=== PATIENT | male | born 1965 | race Caucasian/White ===

== ENCOUNTER 2016-08-10 16:20 | Outpatient (CLI) ==
[2014-02-20 20:36] VITALS: BMI 26.6
[2016-08-10 16:31] LABS: FLU INTERNAL QC INTERNAL QC VALID; RAPID FLU A NEGATIVE (NEGATIVE); RAPID FLU B NEGATIVE (NEGATIVE)
[2016-08-10 16:32] LABS: BASOPHILS # (AUTO) 0.1 K/uL (0-0.2); BASOPHILS % (AUTO) 0.6 % (0.0-3.0); EOSINOPHILS # (AUTO) 0.1 K/ul (0.0-0.7); EOSINOPHILS % (AUTO) 1.2 % (0.0-7.0); HEMOGLOBIN 14.1 g/dl (14.0-18.0); IMMATURE GRANULOCYTE % (AUTO) 0.2 % (0.0-5.0); LYMPHOCYTES # (AUTO) 2.5 K/uL (0.60-3.4); LYMPHOCYTES % (AUTO) 25.1 (10.0-50.0); MEAN CORPUSCULAR HGB CONC 34.4 (31.8-35.4); MONOCYTES # (AUTO) 1.3 K/uL (0.4-2.0); MONOCYTES % (AUTO) 13.4 (0-10); NEUTROPHILS # (AUTO) 5.9 K/ul (2.0-6.9); NEUTROPHILS % (AUTO) 59.5; PLATELET COUNT 290 10^3/uL (140-440); RED BLOOD COUNT 4.27 10^6/ul (4.70-6.10); WHITE BLOOD COUNT 9.87 K/ul (4.2-10.2)
[2016-08-10 17:05] LABS: ALBUMIN 4.2 g/dL (3.4-5.0); ALBUMIN/GLOBULIN RATIO 1.2; ANION GAP 13.2; BILIRUBIN,TOTAL 0.57 mg/dL (0.00-1.20); BUN/CREATININE RATIO 15.38; CALCIUM 9.6 mg/dL (8.2-10.2); CHOL/HDL RATIO 3.1 (4.5-6.4); CREATININE 1.17 mg/dL (0.60-1.10); POTASSIUM 4.2 mmol/L (3.5-5.1); TOTAL PROTEIN 7.7 g/dL (6.4-8.2)
== END 2016-08-10 16:21 | disposition home or self-care (01) ==
LOC: LAB 16:20
PROVIDERS: ATTEND Nurse Practitioner Family
DX: E78.5 Hyperlipidemia, unspecified (principal); E11.9 Type 2 diabetes mellitus without complications; I10 Essential (primary) hypertension
CPT/HCPCS: 36415; 80053; 80061; 83036; 84439; 84443; 85025; 87651; 87804; 87880

== ENCOUNTER 2017-10-07 08:32 | Inpatient (IN) ==
[2017-10-07 08:32] VITALS: BMI 26.6
--- NOTE | 2017-10-07 09:12 | DI ---
EXAM: PA and lateral views of the chest HISTORY: Cough. COMPARISON: Chest x-ray 12/25/[address] chest 02/20/2014 FINDINGS: The cardiomediastinal silhouette is normal. There is no pneumothorax or pleural effusion. There is no consolidation, nodule or mass. The osseous structures demonstrate old healed right rib fractures and minimal degenerative disease of the spine IMPRESSION: No acute cardiopulmonary process
[2017-10-07] MEDS ORDERED: ZOFRAN 4 MG/2 ML IVP STA (09:29)
[2017-10-07] MEDS ORDERED: ROCEPHIN 1 GM in SODIUM CHLORIDE 50 ML IV STA (09:29)
[2017-10-07] MEDS ORDERED: TYLENOL PO STA ×2 (09:30→20:21)
[2017-10-07] MEDS ORDERED: SODIUM CHLORIDE 1,000 ML IV STA (09:30)
[2017-10-07] MEDS ORDERED: ROCEPHIN ONE (09:49)
--- NOTE | 2017-10-07 11:01 | ED.PDOC ---
General ED Provider: Dr. NORBERTO MEDEL Chief Complaint: Respiratory Complaint Stated Complaint: fever tick bite Time Seen by Physician: 08:39 (removed some ticks off of his body 2 days ago has chills and fever ) Mode of Arrival: Walk-In Information Source: Patient Exam Limitations: No limitations [facility] Nursing and Triage Documentation Reviewed and Agree: Yes Reviewed sepsis parameters & appropriate labs ordered?: Yes System Inflammatory Response Syndrome: Temp 101F or Greater Sepsis Protocol: For patient's 13 years and over: Temp is 96.8 and below OR 101 and greater Pulse >90 BPM Resp >20/minute Acutely Altered Mental Status Are patient's symptoms suggestive of a new infection, such as: -Pneumonia -Skin, Soft Tissue -Endocarditis -UTI -Bone, Joint Infection -Implantable Device -Acute Abdominal Infection -Wound Infection -Meningitis -Blood Stream Catheter Infection -Unknown Miscellaneous Complaint Exam - Febrile Illness/Adult Complaint/Exam Onset/Duration: tick bite fever chills 2 days Symptoms Are: Still present (removed some off his body) Timing: Intermittent Episodes Lasting: Days Highest Temperature Recorded: 101 Initial Severity: Mild Current Severity: Moderate Aggravating: Reports: None Alleviating: Reports: None Associated Signs and Symptoms: Reports: Headache, Cough, Sore throat, Nausea, Arthralgia, Myalgia. Denies: Fluid intake, Short of air, Vomiting, Chills, Diaphoresis, Dysuria, Stiff neck, Rash, Altered mental status Related History: Reports: Recent tick bite Pseudomonas Risk Factors: Reports: None Serious Bacterial Infection Risk Factors: Reports: None Current Antibiotic Use: No Last Time and Dose of Tylenol (acetaminophen): 0 Related Surgical History: None Specific Findings: Absent: Meningeal signs, Diaphoresis, Joint swelling, Erythema, Cellulitis, Lymphadenopathy, Petechiae, CVA tenderness Differential Diagnoses: Ling Mtn. Spotted Fever, Sepsis Review of Systems - Review Of Systems Constitutional: Reports: Fever, Malaise, Weakness, Loss of appetite Eyes: Reports: No symptoms Ears, Nose, Mouth, Throat: Reports: No symptoms Respiratory: Reports: Cough Cardiac: Reports: No symptoms GI: Reports: Nausea : Reports: No symptoms Musculoskeletal: Reports: No symptoms Skin: Reports: No symptoms Neurological: Reports: No symptoms Endocrine: Reports: No symptoms Hematologic/Lymphatic: Reports: No symptoms All Other Systems: Reviewed and Negative Past Medical History - Past Medical History Previously Healthy: Yes Endocrine: Reports: DM 2, Dyslipidemia Cardiovascular: Reports: Hypertension Respiratory: Reports: None Hematological: Reports: None Gastrointestinal: Reports: None Genitourinary: Reports: None Neuro/Psych: Reports: Anxiety, Depression Musculoskeletal: Reports: None Cancer: Reports: None - Surgical History General Surgical History: Reports: None - Family History Family History: Reports: None - Social History Smoking Status: Current every day smoker Hx Substance Use: No Alcohol Screening: Occasionally Physical Exam - Physical Exam Appearance: Well-appearing, No pain distress, Well-nourished Eyes: SONIA, EOMI, Conjunctiva clear ENT: Ears normal, Nose normal, Oropharynx normal Respiratory: Airway patent, Breath sounds clear, Breath sounds equal, Respirations nonlabored Cardiovascular: RRR, Pulses normal, No rub, No murmur GI/: Soft, Nontender, No masses, Bowel sounds normal, No Organomegaly Musculoskeletal: Normal strength, ROM intact, No edema, No calf tenderness Skin: Warm, Dry, Normal color Neurological: Sensation intact, Motor intact, Reflexes intact, Cranial nerves intact, Alert, Oriented Psychiatric: Affect appropriate, Mood appropriate Interpretation - Radiology Interpretation Radiology Interpretation By: Radiologist Radiology Results: No acute changes Physician Notification - Case Discussed Physician Notified: pmd Time of Notification: 11:02 Admit To: Inpatient Critical Care Note - Critical Care Note Total Time (mins): 0 Course - Course Hematology/Chemistry: 10/07/17 09:00 10/07/17 09:00 Orders, Labs, Meds: Lab Review 10/07/17 10/07/17 10/07/17 09:00 09:00 09:00 WBC 21.42 H RBC 4.22 L Hgb 14.1 Hct 41.2 L MCV 97.6 H MCH 33.4 H MCHC 34.2 RDW Coeff of Stephy 12.7 Plt Count 283 Immature Gran % (Auto) 0.4 Neut % (Auto) 87.1 Lymph % (Auto) 7.6 L Bryan % (Auto) 4.4 Eos % (Auto) 0.3 Baso % (Auto) 0.2 Immature Gran # (Auto) 0.1 Neut # (Auto) 18.6 H Lymph # (Auto) 1.6 Bryan # (Auto) 0.9 Eos # (Auto) 0.1 Baso # (Auto) 0.1 Sodium 140 Potassium 4.0 Chloride 104 Carbon Dioxide 26 Anion Gap 14.0 BUN 19 H Creatinine 1.12 H Estimated GFR (MDRD) 69.00 BUN/Creatinine Ratio 16.96 Glucose 113 H Lactic Acid Calcium 9.3 Total Bilirubin 0.3 AST 19 ALT 20 Alkaline Phosphatase 67 Total Protein 7.4 Albumin 4.0 Globulin 3.4 Albumin/Globulin Ratio 1.18 Procalcitonin Urine Color Yellow Urine Clarity Clear Urine pH 6.0 Ur Specific [place] 1.020 Urine Protein Negative Urine Glucose (UA) Negative Urine Ketones Negative Urine Blood Trace-intact Urine Nitrite Negative Urine Bilirubin Negative Urine Urobilinogen 0.2 Ur Leukocyte Esterase Negative Ur Squamous Epith Cells 0-2 Influ A Molecular Assay Influ B Molecular Assay 10/07/17 10/07/17 10/07/17 09:00 09:00 09:40 WBC RBC Hgb Hct MCV MCH MCHC RDW Coeff of Stephy Plt Count Immature Gran % (Auto) Neut % (Auto) Lymph % (Auto) Bryan % (Auto) Eos % (Auto) Baso % (Auto) Immature Gran # (Auto) Neut # (Auto) Lymph # (Auto) Bryan # (Auto) Eos # (Auto) Baso # (Auto) Sodium Potassium Chloride Carbon Dioxide Anion Gap BUN Creatinine Estimated GFR (MDRD) BUN/Creatinine Ratio Glucose Lactic Acid 12.4 Calcium Total Bilirubin AST ALT Alkaline Phosphatase Total Protein Albumin Globulin Albumin/Globulin Ratio Procalcitonin < 0.05 Urine Color Urine Clarity Urine pH Ur Specific [place] Urine Protein Urine Glucose (UA) Urine Ketones Urine Blood Urine Nitrite Urine Bilirubin Urine Urobilinogen Ur Leukocyte Esterase Ur Squamous Epith Cells Influ A Molecular Assay Negative by naat Influ B Molecular Assay Negative by naat Orders Category Date Time Status ED IV/MEDIPORT/POWERPORT .ONCE EMERGENCY 10/07/17 09:29 Active BLOOD CULTURE (ED ONLY) Stat LAB 10/07/17 09:00 Received CBC W/ AUTO DIFF Stat LAB 10/07/17 09:00 Completed COMPREHENSIVE METABOLIC PANEL Stat LAB 10/07/17 09:00 Completed FLU A/B MOLECULAR Stat LAB 10/07/17 09:00 Completed LACTIC ACID Stat LAB 10/07/17 09:40 Completed LYME, WESTERN BLOT, SERUM Stat LAB 10/07/17 09:00 Received MOLECULAR GROUP A STREP Stat LAB 10/07/17 09:00 Completed PROCALCITONIN Stat LAB 10/07/17 09:00 Completed LING MTN SPOTTED FEVER,IgG Stat LAB 10/07/17 09:00 Received LING MTN SPOTTED FEVER,IgM Stat LAB 10/07/17 09:00 Received UA [URINALYSIS C & S IF INDICATED] Stat LAB 10/07/17 09:00 Completed 0.9 % Sodium Chloride [Saline Flush] MEDS 10/07/17 09:29 Active 1 syr IVF PRN PRN Acetaminophen [Tylenol] MEDS 10/07/17 09:30 Discontinued 650 mg PO ONCE STA Ceftriaxone Sodium [Rocephin] MEDS 10/07/17 09:49 Discontinued 1 gm .ROUTE .STK-MED ONE Ceftriaxone Sodium [Rocephin] 1 gm MEDS 10/07/17 09:29 Discontinued 0.9 % Sodium Chloride [Sodium Chloride] 50 ml IV ONCE Ondansetron HCl/Pf [Zofran 4 mg/2 ml] MEDS 10/07/17 09:29 Discontinued 4 mg IVP ONCE STA Sodium Chloride 0.9% [Sodium Chloride] 1,000 ml MEDS 10/07/17 09:30 Discontinued IV BOLUS CHEST, 2 VIEWS PA & LAT Stat RADS 10/07/17 08:39 Completed Medications Generic Name Dose Route Start Last Admin Trade Name Freq PRN Reason Stop Dose Admin Sodium Chloride 1 syr 10/07/17 09:29 10/07/17 10:08 Saline Flush IVF 1 syr PRN PRN Administration To flush IV Discontinued Medications Generic Name Dose Route Start Last Admin Trade Name Freq PRN Reason Stop Dose Admin Acetaminophen 650 mg 10/07/17 09:30 10/07/17 10:06 Tylenol PO 10/07/17 09:31 650 mg ONCE STA Administration Ceftriaxone Sodium 1 gm/ 50 mls @ 75 mls/hr 10/07/17 09:29 10/07/17 10:07 Sodium Chloride IV 10/07/17 10:08 75 mls/hr ONCE STA Administration Sodium Chloride 1,000 mls @ 1,000 mls/hr 10/07/17 09:30 10/07/17 10:08 Sodium Chloride IV 10/07/17 10:29 1,000 mls/hr BOLUS STA Administration Ondansetron HCl 4 mg 10/07/17 09:29 10/07/17 10:05 Zofran 4 Mg/2 Ml IVP 10/07/17 09:30 4 mg ONCE STA Administration Vital Signs: Temp Pulse Resp BP Pulse Ox 10/07/17 08:32 101.2 F H 90 20 160/98 H 93 L Departure - Departure Time of Disposition: 11:02 Disposition: ADMITTED INPATIENT Discharge Problem: Tick bite of axillary region Qualifiers: Encounter type: initial encounter Laterality: right Qualified Code(s): S40.861A - Insect bite (nonvenomous) of right upper arm, initial encounter Instructions: Tick Bite (ED) Condition: Good Pt referred to PMD for follow-up: Yes IPMP verified?: No Allergies/Adverse Reactions: Allergies boceprevir [From Victrelis] Allergy (Severe, Verified 10/07/17 08:36) abnormal labwork ribofurin Allergy (Severe, Uncoded 01/18/14 13:37) abnormal labwork
[2017-10-07] MEDS: DOXY-100 100 MG in SODIUM CHLORIDE 100 ML IV SCH ×2 (12:35→20:06)
[2017-10-07] MEDS: SODIUM CHLORIDE 0.9%-KCL 20 MEQ 1,000 ML IV SCH (12:35)
[2017-10-07] MEDS: NICODERM 21 MG TD SCH (15:41)
[2017-10-07] MEDS: TORADOL IM PRN (16:37)
[2017-10-07] MEDS: VASOTEC PO SCH (20:06)
[2017-10-08] MEDS: HYDROCHLOROTHIAZIDE PO SCH (08:50)
[2017-10-08] MEDS: VASOTEC PO SCH ×2 (08:51→20:51)
[2017-10-08] MEDS: TOPROL XL PO SCH (08:51)
[2017-10-08] MEDS: LEVAQUIN 500 MG in PREMIX 100 ML D5W 1 BAG IV SCH ×2 (08:51→11:09)
[2017-10-08] MEDS: NICODERM 21 MG TD SCH ×2 (08:52→20:52)
[2017-10-08] MEDS: DOXY-100 100 MG in SODIUM CHLORIDE 100 ML IV SCH (08:56)
[2017-10-08] MEDS ORDERED: NON-FORMULARY MEDICATION (Hydrochlorothiazide [Hydrochlorothiazide] 12.5 MG) PO SCH (09:00)
[2017-10-08] MEDS: SODIUM CHLORIDE 0.9%-KCL 20 MEQ 1,000 ML IV SCH ×2 (11:08→18:06)
--- NOTE | 2017-10-08 15:54 | CT ---
EXAM: CT chest without contrast HISTORY: Diarrhea, elevated white blood cell count COMPARISON: 02/20/2014 TECHNIQUE: CT chest performed without intravenous contrast. Coronal and sagittal reformatted images obtained. FINDINGS: Thoracic inlet appears normal. Heart normal in size. No pericardial effusion. Aorta nor mal in caliber. Mild atherosclerosis. Esophagus unremarkable. Evaluation for lymphadenopathy limit ed without contrast. No lymphadenopathy identified. Granulomatous calcification. No acute abnormal ities of the bones. Degenerative change in the spine. Central airway patent. Small paratracheal ai r cysts. No pneumothorax or pleural effusion. Ground-glass and nodular infiltrates in the left lowe r lobe and minimal portion right lower lobe and left upper lobe. Scattered bilateral centrilobular no dularity, mostly in the left upper lobe. Scarring with bronchiectasis right upper lobe. Please refer to separate report CT abdomen pelvis regarding findings in the upper abdomen. IMPRESSION: 1. Ground-glass and nodular infiltrates in the left lower lobe and minimal portion right lower lobe a nd left upper lobe. Findings most likely represent pneumonia. Given nodularity, CT chest follow-up recommended in 6 weeks to ensure resolution. 2. Scattered bilateral centrilobular nodularity, mostly in the left upper lobe, suggesting small air ways inflammation/infection. 3. Scarring with bronchiectasis right upper lobe.
--- NOTE | 2017-10-08 16:14 | CT ---
EXAM: CT scan of the abdomen and pelvis without contrast HISTORY: Elevated white count, diarrhea. TECHNIQUE: Imaging of the abdomen pelvis was performed without intravenous contrast. 3 mm thin axia l images and coronal and sagittal reconstructions were provided for interpretation. Comparison CT scan of the chest, abdomen and pelvis dated 02/20/2014. FINDINGS: The liver, spleen, pancreas, adrenal glands and kidneys appear normal. The proximal urete rs are normal size. The small and large bowel loops are normal caliber. There is no free air. No a cute abnormalities are seen within the anterior abdominal wall. The appendix appears normal. The helical images obtained through the pelvis demonstrate a normal appearance of the rectum, urinary bladder. Scattered diverticula are seen within the sigmoid colon without acute inflammation. Patch y infiltrates are seen in the left lung base. The right lung base appears clear. No lytic or blasti c lesions are seen within the osseous structures. IMPRESSION: Left lower lobe pneumonia. There is no bowel obstruction or acute inflammatory change seen within the abdomen and pelvis. Mild diverticular disease of the sigmoid colon without acute inflammation.
[2017-10-08] MEDS ORDERED: ROCEPHIN ONE (20:43)
[2017-10-08] MEDS: ROCEPHIN 1 GM in SODIUM CHLORIDE 50 ML IV SCH (20:55)
[2017-10-09] MEDS: VASOTEC PO SCH ×2 (08:38→20:26)
[2017-10-09] MEDS: HYDROCHLOROTHIAZIDE PO SCH (08:38)
[2017-10-09] MEDS: ROCEPHIN 1 GM in SODIUM CHLORIDE 50 ML IV SCH (08:38)
[2017-10-09] MEDS: TOPROL XL PO SCH (08:38)
[2017-10-09] MEDS: TORADOL IM PRN (08:46)
[2017-10-09] MEDS ORDERED: DECADRON 4 MG/ML SDV IVP STA (09:44)
[2017-10-09] MEDS: NICODERM 21 MG TD SCH (09:46)
[2017-10-09] MEDS: ZITHROMAX PO SCH (09:59)
[2017-10-09] MEDS: DUONEB NEB SCH ×3 (11:07→22:55)
[2017-10-09] MEDS: ATIVAN PO SCH (20:26)
[2017-10-10] MEDS: DUONEB NEB SCH ×4 (04:53→19:55)
[2017-10-10] MEDS: ROCEPHIN 1 GM in SODIUM CHLORIDE 50 ML IV SCH (08:22)
[2017-10-10] MEDS: NICODERM 21 MG TD SCH (08:27)
[2017-10-10] MEDS: HYDROCHLOROTHIAZIDE PO SCH (08:29)
[2017-10-10] MEDS: TOPROL XL PO SCH (08:30)
[2017-10-10] MEDS: ZITHROMAX PO SCH (08:31)
[2017-10-10] MEDS: VASOTEC PO SCH ×2 (08:31→20:09)
--- NOTE | 2017-10-10 14:53 | HP ---
DATE OF SERVICE: 10/07/17 CHIEF COMPLAINT: Cough, congestion, fever and chills. HISTORY OF PRESENT ILLNESS: This is a 52-year-old male, who recently came from [place] traveling, woke up with chills, nausea and dizziness, coughing up yellow-green phlegm. He has had watery diarrhea for two days, nonbloody with some abdominal cramping, sore throat and severe body pains. Temperature was 101.2. History of hypertension and anxiety. Seen by Dr. Teran in the emergency room. White count was 21,000 with left shift. Chemistry: BUN 19, creatinine 1.12, glucose 113. Urine drug screen negative. Chest x-ray no acute cardiopulmonary process. The patient did complain that he was having a lot of tick bites so the patient was admitted to the hospital with fever, leukocytosis and tick bites. REVIEW OF SYSTEMS: CONSTITUTIONAL: Weakness, tiredness. Fever and chills. HEENT: Normal. ENDOCRINE: No weight gain; no weight loss. CVS: No chest pain. No PND, no orthopnea. No shortness of breath. No PND, no orthopnea. RESPIRATORY: Cough and congestion. No hemoptysis. GI: No nausea, no vomiting. No abdominal pain. No melena. : No hematuria. No polyuria. MUSCULOSKELETAL: No joint swelling. PSYCHIATRIC: Not anxious. No depression. No suicidal thoughts. No homicidal thoughts. SKIN: Intact, no open lesions. PAST MEDICAL HISTORY: Hypertension Osteoarthritis History of hepatitis C Past history of C. diff PAST SURGICAL HISTORY: Facial bone surgery Surgery on right arm to replace tendon Chronic back pain PERSONAL HISTORY: The patient does smoke. Drinks alcohol daily (two beers every day). FAMILY HISTORY: Mother has cataracts, heart problems. Grandfather has COPD and family history of diabetes. MEDICATIONS: (HOME) Metoprolol Enalapril Hydrochlorothiazide ALLERGIES: BOCEPREVIR PHYSICAL EXAMINATION: V/S: Temperature 101.2, BP 161/98, respiratory rate 20, heart rate 90, saturation 93 on room air. GENERAL: Sick looking male lying in bed not in any distress. HEENT: Atraumatic, normocephalic. No scleral icterus. Pallor positive . Mucosa dry. NECK: Supple. No JVD, no bruit. No lymphadenopathy. No thyromegaly. HEART: S1, S2 normal. No murmur. No cyanosis or clubbing. No ascites. LUNGS: Decreased breath sounds. Clear to auscultation. No rales or rhonchi. ABDOMEN: Soft, nontender. Bowel sounds are active. No CVA tenderness. No rigidity or guarding. EXTREMITIES: No pedal edema. No cyanosis or clubbing MUSCULOSKELETAL: Normal joints, no swelling. NEUROLOGIC: The patient is SKIN: Intact; no open lesions. LYMPHATIC: No lymph nodes palpable. LABS: White count 21.42, hemoglobin 14.1, hematocrit 41.2, platelet count 283. Sodium 140, potassium 4.0, chloride 104, bicarb 26, BUN 19, creatinine 1.12, glucose 130. ASSESSMENT: 1. FEBRILE ILLNESS 2. RECENT TICK BITE 3. LEUKOCYTOSIS 4. HYPERTENSION 5. ACUTE RENAL FAILURE WITH DEHYDRATION PLAN: 1. Admit patient to the regular floor. 2. Lyme serology 3. Regular cardiac diet 4. [place] Spotted Fever, Lyme serology, Ehrlichia serology 5. Start the patient on Levaquin and Doxycycline TIME SPENT: MORE THAN 75 minutes MTDD
[2017-10-10] MEDS: ATIVAN PO SCH (20:09)
[2017-10-11] MEDS: DUONEB NEB SCH ×4 (05:05→19:35)
[2017-10-11] MEDS: ROCEPHIN 1 GM in SODIUM CHLORIDE 50 ML IV SCH (08:50)
[2017-10-11] MEDS: HYDROCHLOROTHIAZIDE PO SCH (08:55)
[2017-10-11] MEDS: COZAAR PO SCH (08:55)
[2017-10-11] MEDS: NICODERM 21 MG TD SCH (08:56)
[2017-10-11] MEDS: TOPROL XL PO SCH (08:58)
[2017-10-11] MEDS: ZITHROMAX PO SCH (08:59)
--- NOTE | 2017-10-11 09:33 | PN ---
DATE OF SERVICE: 10/08/17 SUBJECTIVE: The patient is admitted with leukocytosis and fever. White count went up to 23, 000, still having some cough, dry, nonproductive. REVIEW OF SYSTEMS: CONSTITUTIONAL: No fever, no chills. HEENT: Normal. ENDOCRINE: No weight gain, no weight loss. CVS: No angina symptoms. No CHF symptoms. No palpitations. No atypical chest pain for CAD. No shortness of breath. No PND, no orthopnea. RESPIRATORY: No cough, no hemoptysis. GI: No nausea, no vomiting. No abdominal pain. : No hematuria. No polyuria. MUSCULOSKELETAL: No joint swelling. PSYCHIATRIC: Not anxious. No depression. No suicidal thoughts. No homicidal thoughts. SKIN: Intact. No rash. PHYSICAL EXAMINATION: V/S: BP 115/74, respiratory rate 16, heart rate 74, temperature 97.8, saturation 96 on room air. HEENT: Normocephalic, atraumatic. Mucosa dry. Pallor positive. No icterus. NECK: Supple. No JVD, no carotid bruit. No lymphadenopathy. LUNGS: Decreased with basilar crackles. HEART: S1, S2 normal. No S3. No murmur, gallop or regurgitation. ABDOMEN: Soft, nontender. Bowel sounds active. No rigidity. No rebound or guarding. No CVA tenderness. EXTREMITIES: No pedal edema. No clubbing or cyanosis MUSCULOSKELETAL: No joint swelling. NEUROLOGIC: Awake, alert, oriented times three. No focal deficit. LYMPHATIC: No lymph nodes palpable. SKIN: Intact. LABS: White count 23.16, hemoglobin 13.3, hematocrit 38.3, platelet count 245. Sodium 141, potassium 4.1, chloride 109, bicarb 23, BUN 17, creatinine 0.94, glucose 114. ASSESSMENT: 1. FEBRILE ILLNESS, WORSENING AND INCREASING WHITE COUNT. NO FEVER SINCE ADMISSION 2. HYPERTENSION PLAN: 1. Will do CT abdomen and pelvis and CT chest in view of worsening white count and no source of infection at this time. Chest x-ray clear. 2. Will stop antibiotics as the patient is worried that he has a history of C. diff in the past and doesn't want C. diff. He verbalized understanding and antibiotics were stopped. TIME SPENT: More than 35 minutes MTDD
--- NOTE | 2017-10-11 09:46 | PN ---
DATE OF SERVICE: 10/09/17 SUBJECTIVE: The patient's CT scan of the chest showed multifocal pneumonia, right upper lobe and right lower lobe, left upper lobe and left lower lobe. The patient was already started on antibiotic Rocephin. The patient was so happy today that we were able to find the infection and willing to take the antibiotics. We explained that in view of multifocal pneumonia, we need to be treating him with antibiotics, steroids and breathing treatment, verbalized understanding. He is still coughing and congested, getting some yellow to green phlegm. No fever or chills. REVIEW OF SYSTEMS: CONSTITUTIONAL: No fever, no chills. HEENT: Normal. ENDOCRINE: No weight gain, no weight loss. CVS: No angina symptoms. No CHF symptoms. No palpitations. No atypical chest pain for CAD. No shortness of breath. No PND, no orthopnea. RESPIRATORY: Cough and congestion with yellow green phlegm. no hemoptysis. GI: No nausea, no vomiting. No abdominal pain. : No hematuria. No polyuria. MUSCULOSKELETAL: No joint swelling. PSYCHIATRIC: Not anxious. No depression. No suicidal thoughts. No homicidal thoughts. SKIN: Intact. No rash. PHYSICAL EXAMINATION: V/S: BP 150/80, respiratory rate 16, heart rate 68, temperature 98.0, saturation 96. HEENT: Normocephalic, atraumatic. Mucosa dry. Pallor positive. No icterus. NECK: Supple. No JVD, no carotid bruit. No lymphadenopathy. LUNGS: Decreased basilar crackles. Clear to auscultation. No rales or rhonchi. HEART: S1, S2 normal. No S3. No murmur, gallop or regurgitation. ABDOMEN: Soft, nontender. Bowel sounds active. No rigidity. No rebound or guarding. No CVA tenderness. EXTREMITIES: No pedal edema. No clubbing or cyanosis MUSCULOSKELETAL: No joint swelling. NEUROLOGIC: Awake, alert, oriented times three. No focal deficit. LYMPHATIC: No lymph nodes palpable. SKIN: Intact. LABS: White count 12.75, hemoglobin 12.6, hematocrit 36.0, platelet count 230. Sodium 140, potassium 2.9, chloride 108, bicarb 23, BUN 18, creatinine 0.93, glucose 111. ASSESSMENT: 1. COMMUNITY ACQUIRED MULTIFOCAL PNEUMONIA 2. ACUTE RENAL FAILURE WHICH IS BETTER 3. HYPERTENSION 4. SEVERE LEUKOCYTOSIS WHICH IS IMPROVING PLAN: 1. Rocephin 1 gm daily 2. Azithromycin 500 mg daily 3. Duonebs 4. Decadron IV 4 mg 5. Awaiting rest of blood cultures and cytology TIME SPENT: More than 35 minutes MTDD
--- NOTE | 2017-10-11 14:29 | DI ---
EXAM: Chest two view, frontal and lateral views. HISTORY: Multilobar pneumonia. Wheezing. Cough. COMPARISON: 10/08/2017. FINDINGS: The heart size is normal. There is no pulmonary vascular congestion. Ground-glass opacit ies seen on recent CT are not identified by radiograph. No consolidation, pleural effusion or pneumo thorax identified. Probable linear scarring in the right upper lobe. There are multiple old right-s ided rib fractures noted. IMPRESSION: No acute radiographic abnormality of the chest. Consider a follow-up chest CT in 4-6 weeks to reasse ss the ground-glass opacities.
--- NOTE | 2017-10-11 15:46 | PN ---
DATE OF SERVICE: 10/10/17 SUBJECTIVE: The patient has multifocal pneumonia. REVIEW OF SYSTEMS: CONSTITUTIONAL: No fever, no chills. Weak and tired. HEENT: Normal. ENDOCRINE: No weight gain, no weight loss. CVS: No angina symptoms. No CHF symptoms. No palpitations. No atypical chest pain for CAD. No shortness of breath. No PND, no orthopnea. RESPIRATORY: Cough getting yellow/green phlegm, no hemoptysis. GI: No nausea, no vomiting. No abdominal pain. : No hematuria. No polyuria. MUSCULOSKELETAL: No joint swelling. PSYCHIATRIC: Not anxious. No depression. No suicidal thoughts. No homicidal thoughts. SKIN: Intact. No rash. PHYSICAL EXAMINATION: V/S: Blood pressure 149/89, respiratory rate 20, heart rate 62, temperature 98.9 with saturation is 99. HEENT: Normocephalic, atraumatic. Mucosa dry. Pallor positive. No icterus. NECK: Supple. No JVD, no carotid bruit. No lymphadenopathy. LUNGS: Decreased and basilar crackles left more than the right. Clear to auscultation. No rales or rhonchi. HEART: S1, S2 normal. No S3. No murmur, gallop or regurgitation. ABDOMEN: Soft, nontender. Bowel sounds active. No rigidity. No rebound or guarding. No CVA tenderness. EXTREMITIES: No pedal edema. No clubbing or cyanosis MUSCULOSKELETAL: No joint swelling. NEUROLOGIC: Awake, alert, oriented times three. No focal deficit. LYMPHATIC: No lymph nodes palpable. SKIN: Intact. LABS: WBC 12.75, hgb 12.6, hct 36.0, plt count 230, sodium 140, potassium 3.9, chloride 108, bicarb 23, BUN 18, creatinine 0.93 and glucose 111. ASSESSMENT: 1. Multifocal pneumonia, community acquired 2. Status post leukocytosis 3. Status post Dehydration PLAN: 1. Continue the Rocephin 2. Azithromycin 3. DUO NEBS 4. Daily I&O's. TIME SPENT: More than 35 minutes MTDD
[2017-10-11] MEDS: ATIVAN PO SCH (20:23)
[2017-10-12] MEDS: DUONEB NEB SCH ×4 (05:05→22:35)
[2017-10-12] MEDS: COZAAR PO SCH (09:37)
[2017-10-12] MEDS: TOPROL XL PO SCH (09:37)
[2017-10-12] MEDS: HYDROCHLOROTHIAZIDE PO SCH (09:38)
[2017-10-12] MEDS: ROCEPHIN 1 GM in SODIUM CHLORIDE 50 ML IV SCH (11:37)
[2017-10-12] MEDS: DOXYCYCLINE HYCLATE PO SCH ×2 (12:30→21:11)
[2017-10-12] MEDS: NICODERM 21 MG TD SCH (15:36)
[2017-10-12] MEDS: ATIVAN PO SCH (21:11)
[2017-10-13 05:08] VITALS: BP 113/72; TEMP 97.8
[2017-10-13] MEDS: DUONEB NEB SCH (05:08)
[2017-10-13] MEDS: HYDROCHLOROTHIAZIDE PO SCH (09:06)
[2017-10-13] MEDS: NICODERM 21 MG TD SCH (09:06)
[2017-10-13] MEDS: TOPROL XL PO SCH (09:07)
[2017-10-13] MEDS: COZAAR PO SCH (09:07)
[2017-10-13] MEDS: DOXYCYCLINE HYCLATE PO SCH (09:07)
--- NOTE | 2017-10-13 15:05 | PN ---
DATE OF SERVICE: 10/11/17 SUBJECTIVE: The patient was admitted with multiple lobular pneumonia. Still coughing, congested. Able to walk and less short of breath. REVIEW OF SYSTEMS: CONSTITUTIONAL: No fever, no chills. HEENT: Normal. ENDOCRINE: No weight gain, no weight loss. CVS: No angina symptoms. No CHF symptoms. No palpitations. No atypical chest pain for CAD. No shortness of breath. No PND, no orthopnea. RESPIRATORY: No cough, no hemoptysis. GI: No nausea, no vomiting. No abdominal pain. : No hematuria. No polyuria. MUSCULOSKELETAL: No joint swelling. PSYCHIATRIC: Not anxious. No depression. No suicidal thoughts. No homicidal thoughts. SKIN: Intact. No rash. PHYSICAL EXAMINATION: V/S: Blood pressure 97/72, respiratory rate 16, heart rate 100, temperature 97.6 and saturation 98%. HEENT: Normocephalic, atraumatic. Mucosa dry. Pallor positive. NECK: Supple. No JVD, no carotid bruit. No lymphadenopathy. LUNGS: respirations are decreased and basilar crackles. Clear to auscultation. No rales or rhonchi. HEART: S1, S2 normal. No S3. No murmur, gallop or regurgitation. ABDOMEN: Soft, nontender. Bowel sounds active. No rigidity. No rebound or guarding. No CVA tenderness. EXTREMITIES: No cyanosis, clubbing or pedal edema. MUSCULOSKELETAL: No joint swelling. NEUROLOGIC: Awake, alert, oriented times three. No focal deficit. LYMPHATIC: No lymph nodes palpable. SKIN: Intact. LABS: Hgb 12.37, hct 12.8, hct 36.9, plt count 271, sodium 141, potassium 3.7, chloride 106, bicarb 24, BUN 17, creatinine 0.89 and glucose 109. ASSESSMENT: 1. Multilobular pneumonia 2. Tick bite 3. Elevated white count 4. Nicotine use PLAN: 1. Continue the Rocephin 1 gram daily 2. DUO NEBS 3. CBC and CMP 4. Up and about walking TIME SPENT: More than 35 minutes MTDD
--- NOTE | 2017-10-13 15:21 | PN ---
DATE OF SERVICE: 10/12/17 SUBJECTIVE: White count is still elevated with a little bit good. Repeat chest x-ray was showing the improving the pneumonia. The Rickettsia came back IgG positive. Lyme is negative. REVIEW OF SYSTEMS: CONSTITUTIONAL: No fever, no chills. HEENT: Normal. ENDOCRINE: No weight gain, no weight loss. CVS: No angina symptoms. No CHF symptoms. No palpitations. No atypical chest pain for CAD. No shortness of breath. No PND, no orthopnea. RESPIRATORY: No cough, no hemoptysis. GI: No nausea, no vomiting. No abdominal pain. : No hematuria. No polyuria. MUSCULOSKELETAL: No joint swelling. PSYCHIATRIC: Not anxious. No depression. No suicidal thoughts. No homicidal thoughts. SKIN: Intact. No rash. PHYSICAL EXAMINATION: V/S: blood pressure 126/77, respiratory rate 20, heart rate 94 and temperature 98.5 with saturation 99. HEENT: Normocephalic, atraumatic. Mucosa dry. Pallor positive. No icterus. NECK: Supple. No JVD, no carotid bruit. No lymphadenopathy. LUNGS: Decreased with fine crackles. Clear to auscultation. No rales or rhonchi. HEART: S1, S2 normal. No S3. No murmur, gallop or regurgitation. ABDOMEN: Soft, nontender. Bowel sounds active. No rigidity. No rebound or guarding. No CVA tenderness. EXTREMITIES: No cyanosis, clubbing or pedal edema. MUSCULOSKELETAL: No joint swelling. NEUROLOGIC: Awake, alert, oriented times three. No focal deficit. LYMPHATIC: No lymph nodes palpable. SKIN: Intact. LABS: WBC 12.27, hgb 14.1, hct 40.9, plt count 297, sodium 139, potassium 4.2, chloride 104, bicarb 24, BUN 13, creatinine 0.91 and glucose 94. ASSESSMENT: 1. Multifocal pneumonia 2. Elevated white count 3. Rickettsia IgG positive 4. Fibril illness 5. Leukocytosis 6. Hypertension 7. Hepatitis C 8. Anxiety 9. Depression PLAN: 1. Continue the Azithromycin 2. Rocephin 3. Pain management TIME SPENT: More than 35 minutes MTDD
--- NOTE | 2017-12-01 13:32 | DS ---
DATE OF SERVICE: 10/13/17 FINAL DIAGNOSIS: 1. Multifocal pneumonia 2. Elevated WBC most likely from the steroids 3. Rickettsia IgG positive 4. Febrile illness 5. Leukocytosis 6. Hypertension 7. Hepatitis C 8. Anxiety 9. Depression 10.Bronchiectasis 11.Nicotine use DISCHARGE INSTRUCTIONS: Discharge the patient home. Followup in the [facility] within 5-7 days. Continue the rest of the home medication. MEDICATIONS AT DISCHARGE: Hydrochlorothiazide Losartan Metoprolol NEW PRESCRIPTIONS: Doxycycline 100mg twice a day for 2 days Prednisone 10mg twice a day for 5 days Cozaar 100mg daily Nicotine patch DIET INSTRUCTIONS: Cardiac and healthy ACTIVITY: As tolerated DISEASE SPECIFIC EDUCATION: Multilobular pneumonia Nicotine COPD been discussed Needing for the pneumonia vaccination been discussed. Antibiotic use and diarrhea been discussed. HOSPITAL COURSE: Henrique Neff who is a 52 year old man came to the emergency room with cough and congestion and fever and chills. Fever was 101.2, Blood pressure 160/98, WBC 21,000 with the left shift. BUN and creatinine are elevated [address] Teran saw the patient in the emergency room. CT abdomen and pelvis done left lower lobe pneumonia was seen, bowel were fine. CT chest showed ground glass and ground nodular infiltrates left lower lobe, minimal portion right lower lobe and left upper lobe. With the bilateral pneumonia the patient was admitted to the hospital and started on the IV antibiotics and breathing treatments and steroids. The patient was having persistent fever. Viral etiology was also started. Antibiotic Doxycycline was started later and breathing treatment were given. Levofloxacin and Rocephin was continued. WBC went up to 23,000 and came down to 12,000 and 12,000. BUN and creatinine was normal. Serology showed the Lyme disease negative. Rickettsia IgG antibodies positive. Meanwhile the patient 's cough, congestion and shortness of breath was gradually improving. The patient was up and about walking and didn't have any problems. At that time the patient being discharged home with oral antibiotics and we will follow at the [facility] within 5-7 days. TIME SPENT: MORE THAN 65 MINUTES MTDD
== END 2017-10-13 09:50 | disposition home or self-care (01) | DRG 194 ==
LOC: ED 08:32 → MEDSURG B 11:07
PROVIDERS: ADMIT Emergency Medicine; ATTEND Emergency Medicine
DX: J18.8 Other pneumonia, unspecified organism (principal); A79.9 Rickettsiosis, unspecified; N17.9 Acute kidney failure, unspecified; D72.829 Elevated white blood cell count, unspecified; R50.9 Fever, unspecified; I10 Essential (primary) hypertension; B19.20 Unspecified viral hepatitis C without hepatic coma; F41.8 Other specified anxiety disorders; F32.89 Other specified depressive episodes; J47.9 Bronchiectasis, uncomplicated; Z72.0 Tobacco use; E86.0 Dehydration; Z86.39 Personal history of other endocrine, nutritional and metabolic disease
CPT/HCPCS: 36415; 80053; 81001; 82962; 83605; 84145; 85025; 86617; 86738; 86757; 87040; 87502; 87651; 94150; 94640; 96365; 96375; 99222; 99223; 99233; 99239; 99284

== ENCOUNTER 2018-07-13 09:15 | Outpatient (CLI) | END 2018-07-13 09:16 | disposition home or self-care (01) | LOC: RHC-LAB 09:15 | PROVIDERS: ATTEND Nurse Practitioner Family | DX: I10 Essential (primary) hypertension (principal) | CPT/HCPCS: 36415; 80053; 85025 ==